=== PATIENT | female | born 1980 | race Caucasian/White ===

== ENCOUNTER 2017-10-10 18:21 | Emergency (ER) | payer MEDICAID ==
[~2017-10-10] VITALS: Ht 162.6 cm; Wt 130.8 kg
[~2017-10-10 18:21] MED LIST: CLIN-80 PO; IBUP-1985 PO; MONT10TA21 PO; PANT-47 PO; PHEN-824 PO
[2017-10-10 19:37] VITALS: BP 124/84
[2017-10-10] MEDS ORDERED: ketorolac trometh inj. 60 MG/2 ML VIAL IM ONE (19:50)
[2017-10-10] MEDS ORDERED: diphenhydrAMINE 50 mg/ml inj IM ONE (19:50)
== END 2017-10-10 20:35 | disposition home or self-care (01) ==
LOC: ER 18:21
DX: R51 Headache (principal); I10 Essential (primary) hypertension; J45.909 Unspecified asthma, uncomplicated; Z98.51 Tubal ligation status; Z79.899 Other long term (current) drug therapy; Z88.0 Allergy status to penicillin; Z88.2 Allergy status to sulfonamides; Z88.8 Allergy status to other drugs, medicaments and biological substances
CPT/HCPCS: 96372; 99284; J1200; J1885

== ENCOUNTER 2018-02-14 11:24 | Emergency (ER) | payer MEDICAID ==
[~2018-02-14] VITALS: Ht 162.6 cm; Wt 127.0 kg
[~2018-02-14 11:24] MED LIST changes: -CLIN-80 PO; +CLIN300C85 PO
[2018-02-14 11:27] VITALS: BP 116/76
[2018-02-14] MEDS ORDERED: OMEP20TA5 PO (12:08)
[2018-02-14] MEDS ORDERED: CYCL-1 PO (12:08)
== END 2018-02-14 12:25 | disposition home or self-care (01) ==
LOC: ER 11:24
DX: R10.13 Epigastric pain (principal); M62.830 Muscle spasm of back; M54.2 Cervicalgia; I10 Essential (primary) hypertension; G43.909 Migraine, unspecified, not intractable, without status migrainosus; J45.909 Unspecified asthma, uncomplicated; Z88.0 Allergy status to penicillin; Z88.2 Allergy status to sulfonamides; Z88.8 Allergy status to other drugs, medicaments and biological substances; Z79.899 Other long term (current) drug therapy
CPT/HCPCS: 99283

== ENCOUNTER 2018-02-27 10:08 | Emergency (ER) | payer MEDICAID ==
[~2018-02-27] VITALS: Ht 162.6 cm; Wt 129.8 kg
[~2018-02-27 10:08] MED LIST changes: +CYCL-1 PO; +OMEP20TA5 PO
[2018-02-27 10:16] VITALS: BP 134/92
[2018-02-27] MEDS ORDERED: DOXY100C43 PO (10:46)
[2018-02-27] MEDS ORDERED: ALBU8.5H8 IH (10:46)
== END 2018-02-27 11:00 | disposition home or self-care (01) ==
LOC: ER 10:08
DX: R06.00 Dyspnea, unspecified (principal); A49.02 Methicillin resistant Staphylococcus aureus infection, unspecified site; L08.9 Local infection of the skin and subcutaneous tissue, unspecified; G43.909 Migraine, unspecified, not intractable, without status migrainosus; I10 Essential (primary) hypertension; J45.909 Unspecified asthma, uncomplicated; Z98.51 Tubal ligation status; Z88.0 Allergy status to penicillin; Z88.2 Allergy status to sulfonamides; Z79.2 Long term (current) use of antibiotics; Z79.899 Other long term (current) drug therapy
CPT/HCPCS: 99283

== ENCOUNTER 2018-07-04 12:09 | Emergency (ER) | payer MEDICAID ==
[~2018-07-04] VITALS: Ht 157.5 cm; Wt 135.5 kg
[~2018-07-04 12:09] MED LIST changes: +ALBU8.5H8 IH
[2018-07-04 13:10] LABS: URINE HCG NEGATIVE (NEG)
[2018-07-04 13:19] LABS: CLARITY,URINE CLEAR (Clear); COLOR,URINE YELLOW (Yellow); GLUCOSE, URINE NEGATIVE (Neg); KETONES,URINE NEGATIVE (Neg); LEUKOCYTE ESTERASE ,URINE NEGATIVE (Neg); NITRITES, URINE NEGATIVE (Neg); OCCULT BLOOD,URINE NEGATIVE (Neg); PH,URINE 5.5 (4.8-8.0); PROTEIN,URINE NEGATIVE (Neg); UROBILINOGEN,URINE 0.2 E.U/dL (0.2-1.0)
[2018-07-04 13:22] LABS: UA COLLECTION TYPE CLN CATCH MIDSTREAM
[2018-07-04] MEDS ORDERED: NAPR-56 PO (13:32)
[2018-07-04 13:45] VITALS: BP 114/77
== END 2018-07-04 13:55 | disposition home or self-care (01) ==
LOC: ER 12:09
DX: M54.5 Low back pain (principal); I10 Essential (primary) hypertension; G43.909 Migraine, unspecified, not intractable, without status migrainosus; J45.909 Unspecified asthma, uncomplicated; Z98.51 Tubal ligation status; Z88.0 Allergy status to penicillin; Z88.2 Allergy status to sulfonamides; Z79.2 Long term (current) use of antibiotics; Z79.899 Other long term (current) drug therapy
CPT/HCPCS: 81003; 81025; 99283

== ENCOUNTER 2018-07-27 12:40 | Emergency (ER) | payer MEDICAID ==
[~2018-07-27] VITALS: Ht 157.5 cm; Wt 139.3 kg
[~2018-07-27 12:40] MED LIST changes: +NAPR-56 PO
[2018-07-27 13:13] VITALS: BP 134/83
[2018-07-27 14:09] LABS: CLARITY,URINE SLIGHTLY CLOUDY (Clear); COLOR,URINE STRAW (Yellow); GLUCOSE, URINE NEGATIVE (Neg); KETONES,URINE NEGATIVE (Neg); LEUKOCYTE ESTERASE ,URINE NEGATIVE (Neg); NITRITES, URINE NEGATIVE (Neg); OCCULT BLOOD,URINE NEGATIVE (Neg); PROTEIN,URINE NEGATIVE (Neg); URINE HCG NEGATIVE (NEG); UROBILINOGEN,URINE 0.2 E.U/dL (0.2-1.0)
[2018-07-27 14:16] LABS: MUCUS STRANDS FEW /LPF (Neg); SQUAMOUS EPITHELIAL CELL,UR MODERATE /LPF (FEW); UA COLLECTION TYPE CLN CATCH MIDSTREAM
[2018-07-27 14:17] LABS: BACTERIA,URINE FEW /HPF (Neg); RBC,URINE 0-2 /HPF (0-2); WBC,URINE 0-4 /HPF (0-4)
[2018-07-27] MEDS ORDERED: fluconazole 150mg tablet PO ONE (14:25)
== END 2018-07-27 14:43 | disposition home or self-care (01) ==
LOC: ER 12:40
DX: R30.0 Dysuria (principal); M54.5 Low back pain; I10 Essential (primary) hypertension; J45.909 Unspecified asthma, uncomplicated; G43.909 Migraine, unspecified, not intractable, without status migrainosus; Z98.51 Tubal ligation status; Z88.0 Allergy status to penicillin; Z88.2 Allergy status to sulfonamides; Z88.8 Allergy status to other drugs, medicaments and biological substances; Z79.899 Other long term (current) drug therapy
CPT/HCPCS: 81001; 81025; 99283

== ENCOUNTER 2018-10-20 15:05 | Emergency (ER) | payer MEDICAID ==
[~2018-10-20] VITALS: Ht 162.6 cm; Wt 140.0 kg
[~2018-10-20 15:05] MED LIST changes: +AZIT-63 PO; +CLIN-96 PO; -CLIN300C85 PO; -NAPR-56 PO
[2018-10-20 15:10] VITALS: BP 136/96
== END 2018-10-20 16:29 | disposition home or self-care (01) ==
LOC: ER 15:06
DX: J02.9 Acute pharyngitis, unspecified (principal); R05 Cough; I10 Essential (primary) hypertension; G43.909 Migraine, unspecified, not intractable, without status migrainosus; J45.909 Unspecified asthma, uncomplicated; Z98.51 Tubal ligation status; Z88.0 Allergy status to penicillin; Z88.2 Allergy status to sulfonamides; Z88.8 Allergy status to other drugs, medicaments and biological substances
CPT/HCPCS: 99281

== ENCOUNTER 2021-01-08 23:48 | Emergency (ER) | payer MEDICAID ==
[~2021-01-08] VITALS: Ht 162.6 cm; Wt 131.0 kg
[~2021-01-08 23:48] MED LIST changes: -AZIT-63 PO; -CLIN-96 PO; +CLIN-97 PO
[2021-01-08 23:53] VITALS: BP 101/70
[2021-01-09] MEDS ORDERED: ondansetron 4mg rapidly disintigrating tab PO ONE
--- NOTE | 2021-01-09 00:29 | NUR ---
Patient's MIL (Atiya): [phone] Sister (Christine): [phone]
[2021-01-09] MEDS ORDERED: ONDA4TAB6 PO (01:14)
== END 2021-01-09 01:31 | disposition home or self-care (01) ==
LOC: ER 23:48
DX: K29.00 Acute gastritis without bleeding (principal); Z20.822 Contact with and (suspected) exposure to COVID-19; R11.2 Nausea with vomiting, unspecified; R43.8 Other disturbances of smell and taste; R19.7 Diarrhea, unspecified; G43.909 Migraine, unspecified, not intractable, without status migrainosus; I10 Essential (primary) hypertension; J45.909 Unspecified asthma, uncomplicated; F31.9 Bipolar disorder, unspecified; F20.9 Schizophrenia, unspecified; Z86.69 Personal history of other diseases of the nervous system and sense organs; Z87.440 Personal history of urinary (tract) infections; Z90.49 Acquired absence of other specified parts of digestive tract; Z98.51 Tubal ligation status; Z88.0 Allergy status to penicillin; Z88.2 Allergy status to sulfonamides; Z88.8 Allergy status to other drugs, medicaments and biological substances; Z79.2 Long term (current) use of antibiotics; Z79.899 Other long term (current) drug therapy
CPT/HCPCS: 87635; 99283; C9803

== ENCOUNTER 2021-12-07 07:54 | Emergency (ER) | payer MEDICAID ==
[~2021-12-07] VITALS: Ht 157.5 cm; Wt 126.9 kg
[~2021-12-07 07:54] MED LIST changes: +ALBU8.5H17 IH; -ALBU8.5H8 IH; +OMEP20TA43 PO; -OMEP20TA5 PO; +ONDA4TAB6 PO
[2021-12-07 09:15] LABS: BASOPHILS % (AUTO) 0.6 % (0-1); EOSINOPHILS # (AUTO) 0.2 X10'3 (0-0.9); EOSINOPHILS % (AUTO) 3.7 % (0-6); HEMATOCRIT 35.8 % (35.0-45.0); HEMOGLOBIN 11.6 g/dl (12.0-16.0); LYMPHOCYTES # (AUTO) 1.6 X10'3 (1.1-4.8); LYMPHOCYTES % (AUTO) 25.9 % (21-51); MEAN CORPUSCULAR HEMOGLOBIN 27.5 PG (27.0-31.0); MEAN CORPUSCULAR HGB CONC 32.5 g/dL (33.0-36.5); MEAN CORPUSCULAR VOLUME 84.7 FL (78-98); MEAN PLATELET VOLUME 8.5 FL (7.4-10.4); MONOCYTES # (AUTO) 0.7 X10'3 (0-0.9); NEUTROPHILS # (AUTO) 3.5 X10'3 (1.8-7.7); NEUTROPHILS % (AUTO) 57.8 % (42-75); PLATELET COUNT 237 X10'3 (140-440); RED BLOOD COUNT 4.22 X10'6 (4.20-5.60); RED CELL DISTRIBUTION WIDTH 14.3 % (11.5-14.5)
[2021-12-07 09:18] LABS: ALANINE AMINOTRANSFERASE 52 U/L (12-78); ALBUMIN 3.3 G/DL (3.4-5.0); ALKALINE PHOSPHATASE 42 IU/L (46-116); ANION GAP 11 (8-16); ASPARTATE AMINO TRANSFERASE 33 U/L (10-37); BILIRUBIN,TOTAL 0.3 MG/DL (0.1-1.0); BLOOD UREA NITROGEN 18 MG/DL (7-18); CALCIUM 8.6 MG/DL (8.5-10.1); CHLORIDE 105 MMOL/L (99-107); CREATININE 1.29 MG/DL (0.40-0.90); GLUCOSE 100 MG/DL (70-104); POTASSIUM 3.9 MMOL/L (3.5-5.1); SODIUM 145 MMOL/L (135-145); TOTAL CARBON DIOXIDE 28.7 MMOL/L (24-32); TOTAL PROTEIN 6.5 G/DL (6.4-8.2); eGFR 45 ML/MIN
--- NOTE | 2021-12-07 10:12 | NUR ---
Report given to Kera you.
--- NOTE | 2021-12-07 10:48 | NUR ---
Deandre called back stating that the patient has been discharged and they are no longer taking her back to their facility. Pt's sister Christine Martinez [phone] has been called and states that she will come and pick her up.
[2021-12-07 11:20] VITALS: BP 148/92
[2021-12-07] MEDS ORDERED: OXYB5TAB16 PO (22:19)
[2021-12-07] MEDS ORDERED: GABA-530 PO (22:41)
[2021-12-07] MEDS ORDERED: PROP10TA10 PO (22:44)
[2021-12-07] MEDS ORDERED: PRAZ5CAP2 PO (22:48)
[2021-12-07] MEDS ORDERED: PALI6TAB6 PO (22:54)
[2021-12-07] MEDS ORDERED: ESCI-8 PO (22:54)
[2021-12-07] MEDS ORDERED: OMEP20CA16 PO (22:56)
[2021-12-07] MEDS ORDERED: FURO-150 PO (23:03)
== END 2021-12-07 11:31 | disposition home or self-care (01) ==
LOC: ER 07:54
DX: R60.0 Localized edema (principal); R06.02 Shortness of breath; G43.909 Migraine, unspecified, not intractable, without status migrainosus; I10 Essential (primary) hypertension; J45.909 Unspecified asthma, uncomplicated; F31.9 Bipolar disorder, unspecified; F20.9 Schizophrenia, unspecified; Z86.69 Personal history of other diseases of the nervous system and sense organs; Z87.440 Personal history of urinary (tract) infections; Z90.49 Acquired absence of other specified parts of digestive tract; Z98.51 Tubal ligation status; Z88.0 Allergy status to penicillin; Z88.2 Allergy status to sulfonamides; Z88.8 Allergy status to other drugs, medicaments and biological substances; Z79.2 Long term (current) use of antibiotics; Z79.899 Other long term (current) drug therapy
CPT/HCPCS: 36415; 80053; 85025; 99284

== ENCOUNTER 2021-12-07 20:13 | Emergency (ER) | payer MEDICAID ==
[~2021-12-07] VITALS: Ht 157.5 cm; Wt 172.7 kg
--- NOTE | 2021-12-07 22:01 | NUR ---
PT UP AND DOWN REPEATEDLY WITH LIMITED FOLLOWING DIRECTIONS
[2021-12-07] MEDS ORDERED: OXYB5TAB16 PO (22:19)
[2021-12-07] MEDS ORDERED: GABA-530 PO (22:41)
[2021-12-07] MEDS ORDERED: PROP10TA10 PO (22:44)
[2021-12-07] MEDS ORDERED: PRAZ5CAP2 PO (22:48)
--- NOTE | 2021-12-07 22:51 | NUR ---
PT CONTINUES TO GET UP OUT OF BED OVER AND OVER AND REFUSING TO FOLLOW COMMANDS. PT RETURNED TO BED EACH TIME WITH RESISTANCE
[2021-12-07] MEDS ORDERED: PALI6TAB6 PO (22:54)
[2021-12-07] MEDS ORDERED: ESCI-8 PO (22:54)
[2021-12-07] MEDS ORDERED: OMEP20CA16 PO (22:56)
[2021-12-07] MEDS ORDERED: FURO-150 PO (23:03)
--- NOTE | 2021-12-07 23:50 | NUR ---
PT REPEATEDLY UP OUT OF ROOM WITH NO CLOTHES ON OR JUST HER SHIRT. PT REPEATEDLY ATTEMPTING TO USE BEDSIDE COMMODE. PT CONTINUES TO CRY LOUDLY AND BE DISRUPTIVE. PT ATTEMPTING TO GRAB ITEMS IN ROOM OVER AND OVER WHILE BEING DIFFICULT TO REDIRECT. PT ATTEMPTING TO GO INTO OTHER PT'S ROOMS AND BEING DIFFICULT TO REDIRECT OUT. PT USING HER OWN FORCE TO DO THE OPPOSITE OF WHAT STAFF IS SUGGESTING PHYSICALLY. PT CONTINUALLY REDIRECTED BACK TO ROOM/BED SAFELY
[2021-12-08 00:09] LABS: BASOPHILS % (AUTO) 0.7 % (0-1); EOSINOPHILS # (AUTO) 0.2 X10'3 (0-0.9); EOSINOPHILS % (AUTO) 3.5 % (0-6); HEMATOCRIT 35.2 % (35.0-45.0); HEMOGLOBIN 11.7 g/dl (12.0-16.0); LYMPHOCYTES # (AUTO) 1.9 X10'3 (1.1-4.8); LYMPHOCYTES % (AUTO) 29.4 % (21-51); MEAN CORPUSCULAR HEMOGLOBIN 27.6 PG (27.0-31.0); MEAN CORPUSCULAR HGB CONC 33.1 g/dL (33.0-36.5); MEAN CORPUSCULAR VOLUME 83.3 FL (78-98); MEAN PLATELET VOLUME 8.5 FL (7.4-10.4); MONOCYTES # (AUTO) 0.8 X10'3 (0-0.9); MONOCYTES % (AUTO) 11.7 % (2-12); NEUTROPHILS # (AUTO) 3.5 X10'3 (1.8-7.7); NEUTROPHILS % (AUTO) 54.7 % (42-75); PLATELET COUNT 243 X10'3 (140-440); RED BLOOD COUNT 4.23 X10'6 (4.20-5.60); RED CELL DISTRIBUTION WIDTH 14.2 % (11.5-14.5); WHITE BLOOD COUNT 6.4 X10'3 (4.5-11.0)
[2021-12-08 00:29] LABS: ALANINE AMINOTRANSFERASE 45 U/L (12-78); ALBUMIN 3.5 G/DL (3.4-5.0); ALKALINE PHOSPHATASE 47 IU/L (46-116); ANION GAP 8 (8-16); ASPARTATE AMINO TRANSFERASE 29 U/L (10-37); BILIRUBIN,TOTAL 0.3 MG/DL (0.1-1.0); BLOOD UREA NITROGEN 18 MG/DL (7-18); BUN/CREATININE RATIO 13.8 (6.6-38.0); CALCIUM 8.7 MG/DL (8.5-10.1); CHLORIDE 102 MMOL/L (99-107); ETHANOL < 0.010 GM/DL (0.0-0.010); GLUCOSE 108 MG/DL (70-104); POTASSIUM 3.9 MMOL/L (3.5-5.1); SODIUM 140 MMOL/L (135-145); TOTAL PROTEIN 6.9 G/DL (6.4-8.2); eGFR 45 ML/MIN
[2021-12-08] MEDS ORDERED: LORazepam 1 MG tablet PO ONE (01:10)
--- NOTE | 2021-12-08 01:15 | NUR ---
Pt has repeatedly taken her gown off and wanders her ER room and sometimes the ER hallway naked. Pt has been assisted back into her gown and directed to stay dressed. Pt is crying loudly and continually, only stopping when confronted with inappropriate behavior.
[2021-12-08] MEDS ORDERED: haloperidol lactate 5mg/ml inj IM ONE (02:50)
[2021-12-08] MEDS: gabapentin 300mg capsule PO PRN ×2 (02:55→19:56)
--- NOTE | 2021-12-08 03:10 | NUR ---
PT HAS CONTINUED TO DO ALL ABOVE BEHAVIOR. PT NOW FOUND TO BE ON HER PERIOD. PADS AND UNDERWEAR PLACED ON PT AND WILL CONTINUE TO REASSESS
[2021-12-08] MEDS ORDERED: LORazepam 2 mg/ml vial IM ONE (04:35)
--- NOTE | 2021-12-08 04:45 | NUR ---
AFTER BEING MEDICATED WITH 10MG HALDOL AND 2MG ATIVAN, PT CONTINUES TO WANDER THE UNIT, UNSAFELY GET OUT OF BED, NOT FOLLOW COMMANDS, CRY LOUDLY AND PERSISTENTLY GET NAKED BEFORE WANDERING UNIT. SPOKE TO DR ROSAS AND HE IS TO ORDER MORE ATIVAN AND SOFT RESTRAINTS
--- NOTE | 2021-12-08 06:47 | NUR ---
PT UP TO BATHROOM AND RETURNED. DID NOT PROVIDE URINE SAMPLE. THREW CUP IN TRASH. PT FOLLOWING INSTRUCTIONS AND RESTRAINTS REMOVED. PT AGREES TO FOLLOW INSTRUCTIONS AT THIS TIME.
[2021-12-08] MEDS: oxybutynin 5mg tablet PO SCH ×2 (08:17→20:10)
[2021-12-08] MEDS: PALIPERIDONE 3 MG TAB.ER.24 PO SCH (08:17)
[2021-12-08] MEDS: propranolol 10mg tablet PO SCH ×3 (08:17→20:48)
[2021-12-08] MEDS: pantoprazole 40mg Tablet.DR PO SCH (08:17)
[2021-12-08] MEDS: ESCITALOPRAM OXALATE 5 MG TABLET PO SCH (08:18)
[2021-12-08] MEDS: furosemide 20MG tablet PO SCH ×2 (08:20→19:56)
--- NOTE | 2021-12-08 08:22 | NUR ---
PT SISTER AT BEDSIDE. TOOK MORNING MEDICATIONS WITHOUT ISSUE. PT NOW LAYING IN BED
--- NOTE | 2021-12-08 10:00 | NUR ---
Pt was brought over to bed #23 via wheelchair from main ED. 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 Pt urinated on the floor before coming over to OF. Pt unable to leave sample at this time.
--- NOTE | 2021-12-08 10:54 | NUR ---
Pt sleeping comfortably, respirations even and unlabored.
--- NOTE | 2021-12-08 11:15 | NUR ---
Pt up pacing around her bed attempted to go into next bed area, pt required several attempts at redirection from staff. Pt continues to present disorgainzed, crying and whining. Random statements "I don't want to have sex anymore." "I am tired of all of this."
--- NOTE | 2021-12-08 11:30 | NUR ---
Pt up to bedside commode, states "it hurts when I pee." Obtained order
--- NOTE | 2021-12-08 12:04 | NUR ---
Pt has has multiple urine incontinent episodes, due to needing a urine sample for placement a straight cath was administered wit result. Urine sent to lab.
--- NOTE | 2021-12-08 12:10 | NUR ---
Pt is resting quietly in her bed, respirations even and unlabored.
[2021-12-08 12:14] LABS: URINE HCG NEGATIVE (NEG)
[2021-12-08 12:17] LABS: URINE AMPHETAMINE SCREEN NEGATIVE (Neg); URINE BARBITUATE SCREEN NEGATIVE (Neg); URINE BENZODIAZEPINES SCREEN NEGATIVE (Neg); URINE CANNABINOID SCREEN NEGATIVE (Neg); URINE COCAINE SCREEN NEGATIVE (Neg); URINE METHADONE SCREEN NEGATIVE (Neg); URINE OPIATE SCREEN NEGATIVE (Neg); URINE PHENCYCLIDINE SCREEN NEGATIVE (Neg)
--- NOTE | 2021-12-08 12:59 | NUR ---
Pt ate 100% of her lunch. She is now sleeping restfully, respirations even and unlabored.
--- NOTE | 2021-12-08 13:35 | NUR ---
Pt woke saturated bed and clothing. Linens and bedding changed.
[2021-12-08 13:48] LABS: CLARITY,URINE CLEAR (Clear); GLUCOSE, URINE NEGATIVE (Neg); KETONES,URINE NEGATIVE (Neg); LEUKOCYTE ESTERASE ,URINE NEGATIVE (Neg); NITRITES, URINE NEGATIVE (Neg); OCCULT BLOOD,URINE SMALL (Neg); PH,URINE 5.5 (4.8-8.0); PROTEIN,URINE NEGATIVE (Neg); UROBILINOGEN,URINE 0.2 E.U/dL (0.2-1.0)
[2021-12-08 13:52] LABS: COLOR,URINE STRAW (Yellow); UA COLLECTION TYPE STRAIGHT CATH
[2021-12-08 13:58] LABS: BACTERIA,URINE NONE SEEN /HPF (Neg); MUCUS STRANDS NONE SEEN /LPF (Neg); RBC,URINE 0-2 /HPF (0-2); SQUAMOUS EPITHELIAL CELL,UR MANY /LPF (FEW); WBC,URINE NONE SEEN /HPF (0-4)
--- NOTE | 2021-12-08 15:03 | NUR ---
Pt resting quietly, respirations even and unlabored.
--- NOTE | 2021-12-08 16:08 | NUR ---
Pt is restless, up and down to the bedside commode, talking non sensically.
--- NOTE | 2021-12-08 17:36 | NUR ---
Pt resting comfortably, respirations even and unlabored.
--- NOTE | 2021-12-08 18:27 | NUR ---
Pt sitting up in bed, eating dinner. No acute distress.
--- NOTE | 2021-12-08 19:28 | NUR ---
Pt laying in the right lateral position. Eyes closed, respirations are even and unlabored.
--- NOTE | 2021-12-08 19:50 | NUR ---
Pt awoke with linen and gown saturated. Full linen change and new gown provided. Pt gave self bed bath using cleaning wipes. Pt now laying supine in bed, requesting for "something to sleep."
--- NOTE | 2021-12-08 20:30 | NUR ---
Pt laying on right side, eyes are closed, respirations are even and unlabored.
[2021-12-08] MEDS: prazosin 5mg capsule PO SCH (20:49)
--- NOTE | 2021-12-08 21:28 | NUR ---
Pt ambulated to the restroom. States " I just want to go home" and occassionally yelling out from her room. Pt compliant with all pm medications. Prazosin and propanolol held due to blood pressure of 100/56.
--- NOTE | 2021-12-08 22:42 | NUR ---
Pt laying on right side, respirations are nonlabored, eyes are closed. Pt is in no apparent distress.
--- NOTE | 2021-12-09 00:20 | NUR ---
Pt laying supine, head of bed elevated. Pt's eyes are closed, respirations are even and unlabored.
--- NOTE | 2021-12-09 02:01 | NUR ---
Pt laying supine, head of bed elevated. Eyes are closed, respirations are even and unlabored. Pt is in no apprent distress.
--- NOTE | 2021-12-09 04:12 | NUR ---
Pt appears to be sleeping, in no acute distress. Pt laying supine, eyes closed, respirations are even and unlabored.
--- NOTE | 2021-12-09 04:40 | NUR ---
Pt awoke from sleep, linens are saturated with urine. Complete linen change completed. Pt cleaned self up with bath wipes. Pt stated "I just can't get comfortable" Attempted to adjust bed to her comfort.
--- NOTE | 2021-12-09 07:13 | NUR ---
PT RESTING LAYING ON R SIDE, EYES CLOSED, EFFORTLESS RESPIRATIONS OBSERVED.
[2021-12-09] MEDS: oxybutynin 5mg tablet PO SCH ×2 (09:03→20:29)
[2021-12-09] MEDS: PALIPERIDONE 3 MG TAB.ER.24 PO SCH (09:03)
[2021-12-09] MEDS: pantoprazole 40mg Tablet.DR PO SCH (09:04)
[2021-12-09] MEDS: furosemide 20MG tablet PO SCH ×2 (09:04→19:27)
[2021-12-09] MEDS: ESCITALOPRAM OXALATE 5 MG TABLET PO SCH (09:04)
[2021-12-09] MEDS: propranolol 10mg tablet PO SCH ×3 (09:04→19:27)
--- NOTE | 2021-12-09 09:15 | NUR ---
PT AMBULATED BACK TO ROOM 25. REPORT WAS GIVEN TO BEKA GURROLA. PT REMAINS CALM AND COOPERATIVE.
--- NOTE | 2021-12-09 11:00 | NUR ---
Pt currently asleep with no signs of distress.
--- NOTE | 2021-12-09 11:45 | NUR ---
Pt became irritable, talking jibberish from her bed, yelling at times. Provider notified and 5MG haldol given. Pt incontinent of urine, linen and gown changed, fresh chux provided.
--- NOTE | 2021-12-09 13:00 | NUR ---
Pt up to eat lunch. No complaints.
--- NOTE | 2021-12-09 15:00 | NUR ---
Pt's sister visited briefly. Pt was glad to see her. Pt fell back to sleep.
--- NOTE | 2021-12-09 17:00 | NUR ---
Pt restless and talking and crying to herself. What she verbalizes is basically psychotic giberish. Pt up multiple times to the bathroom
[2021-12-09] MEDS: LORazepam 1 MG tablet PO PRN ×2 (17:17→23:05)
[2021-12-09] MEDS: gabapentin 300mg capsule PO PRN (18:34)
[2021-12-09] MEDS ORDERED: OLANZapine 2.5MG tablet PO ONE (19:20)
[2021-12-09] MEDS: prazosin 5mg capsule PO SCH (19:27)
--- NOTE | 2021-12-09 19:53 | NUR ---
Pt voiced AH/AH stating that she hears and sees things "like seeing people like you who remind me of my mom." Pt responding to IS, provider notified and ordered 10MG of Zyprexa. Pt currently lying down in bed resting.
--- NOTE | 2021-12-09 20:40 | NUR ---
Pt incontinent of urine, pt crying stating she needs her mom. Pt cleaned up and new sheets and chux provided.
--- NOTE | 2021-12-09 23:07 | NUR ---
Pt awake responding to IS. 1MG ativan given.
[2021-12-09] MEDS ORDERED: haloperidol 5mg tablet PO ONE (23:40)
--- NOTE | 2021-12-10 03:15 | NUR ---
pt appears to be sleeping
--- NOTE | 2021-12-10 03:42 | NUR ---
Pt incontinent of urine, bedding changed and new gown given. Pt is respinding to IS.
--- NOTE | 2021-12-10 06:30 | NUR ---
Patient sleeping (snoring) and laying on left side. No distress observed. Continue to monitor.
--- NOTE | 2021-12-10 08:11 | NUR ---
RN placed patient's breakfast tray at bedside. No distress observed. Continue to monitor.
--- NOTE | 2021-12-10 08:15 | NUR ---
Patient continues to sleep. Continue to monitor.
[2021-12-10] MEDS: PALIPERIDONE 3 MG TAB.ER.24 PO SCH (08:58)
[2021-12-10] MEDS: pantoprazole 40mg Tablet.DR PO SCH (08:58)
[2021-12-10] MEDS: propranolol 10mg tablet PO SCH ×3 (08:58→19:57)
[2021-12-10] MEDS: furosemide 20MG tablet PO SCH ×2 (08:58→19:57)
[2021-12-10] MEDS: oxybutynin 5mg tablet PO SCH ×2 (08:58→19:57)
[2021-12-10] MEDS: ESCITALOPRAM OXALATE 5 MG TABLET PO SCH (08:58)
--- NOTE | 2021-12-10 09:40 | NUR ---
Patient awake and sitting on the edge of her bed eating. No distress observed at this time. Continue to monitor.
--- NOTE | 2021-12-10 11:32 | NUR ---
Patient up and urinated in bed. Tech cleaning patient's bed. Patient in no distress. Continue to monitor.
--- NOTE | 2021-12-10 11:45 | NUR ---
Patient walking to the BR, did not make it and pooped on the floor. Patient finished in the BR. No distress observed. Continue to monitor.
--- NOTE | 2021-12-10 12:13 | NUR ---
Patient sitting in chair and eating her lunch. Patient did complain of seeing lights flash. RN will speak to the Doc to see what we can order to assist patient. Continue to monitor.
[2021-12-10] MEDS ORDERED: haloperidol 5mg tablet PO ONE (12:20)
--- NOTE | 2021-12-10 12:22 | NUR ---
Patient eating lunch. No distress observed. Continue to monitor.
--- NOTE | 2021-12-10 14:15 | NUR ---
Patient sleeping (snoring) on her left side. No distress observed. Continue to monitor.
--- NOTE | 2021-12-10 16:10 | NUR ---
Patient given a warm blanket. No distress observed. Continue to monitor.
--- NOTE | 2021-12-10 19:38 | NUR ---
One to one with the patient who has a pensive affect and is endorsing high anxiety and explained, "I don't know what they are going to do with me" She reports auditory hallucinations, "They ask me who did all this damage to me" She also reports command hallucinations tellling her to kill herself but stated she does want to commit suicide and that she wants to live. She denies visual hallucinations.
[2021-12-10] MEDS: prazosin 5mg capsule PO SCH (19:57)
[2021-12-10] MEDS: gabapentin 300mg capsule PO PRN (19:57)
[2021-12-10] MEDS: LORazepam 1 MG tablet PO PRN (19:57)
--- NOTE | 2021-12-10 20:28 | NUR ---
The patient appears to be sleeping
[2021-12-10] MEDS ORDERED: haloperidol 5mg tablet PO SCH (21:00)
--- NOTE | 2021-12-10 22:50 | NUR ---
The patient appears to be sleeping
--- NOTE | 2021-12-11 01:22 | NUR ---
The patient appears to be sleeping
--- NOTE | 2021-12-11 04:07 | NUR ---
The patient appears to be sleeping
[2021-12-11 05:11] VITALS: BP 105/69
--- NOTE | 2021-12-11 05:17 | NUR ---
The patient appears to be sleeping and can be heard snoring
--- NOTE | 2021-12-11 06:44 | NUR ---
Patient sleeping on left side with her head at the foot of the bed. Patient can be heard snoring. No distress observed. Continue to monitor.
--- NOTE | 2021-12-11 08:16 | NUR ---
RN took patient's tray over to her. Patient got up and patient was soaked in urine. Patient went to change in the BR and patient's bed was cleaned. No distress observed. Continue to monitor.
[2021-12-11] MEDS: propranolol 10mg tablet PO SCH ×2 (08:26→13:38)
[2021-12-11] MEDS: pantoprazole 40mg Tablet.DR PO SCH (08:26)
[2021-12-11] MEDS: furosemide 20MG tablet PO SCH (08:26)
[2021-12-11] MEDS: PALIPERIDONE 3 MG TAB.ER.24 PO SCH (08:26)
[2021-12-11] MEDS: oxybutynin 5mg tablet PO SCH (08:29)
[2021-12-11] MEDS: ESCITALOPRAM OXALATE 5 MG TABLET PO SCH (08:29)
--- NOTE | 2021-12-11 09:25 | NUR ---
Patient's sister is visiting with her. No distress observed. Continue to monitor.
--- NOTE | 2021-12-11 09:55 | NUR ---
Patient got out of bed to use and was dry. This was the first time in 2 days she has not been wet. Continue to monitor.
--- NOTE | 2021-12-11 11:01 | NUR ---
Patient incontinent of urine again. Tech changing patient. No distress observed. Continue to monitor.
--- NOTE | 2021-12-11 12:09 | NUR ---
Patient eating lunch. No distress observed. Continue to monitor.
--- NOTE | 2021-12-11 14:03 | NUR ---
Patient sitting up in chair. No distress observed. Continue to monitor.
--- NOTE | 2021-12-11 16:09 | NUR ---
Patient is sitting in her chair in front of her bed awaiting her sister to pick her up. No distress observed. Continue to monitor.
== END 2021-12-11 16:10 | disposition home or self-care (01) ==
LOC: ER 20:15
DX: M79.605 Pain in left leg (principal); Z20.822 Contact with and (suspected) exposure to COVID-19; M79.604 Pain in right leg; G43.909 Migraine, unspecified, not intractable, without status migrainosus; I10 Essential (primary) hypertension; J45.909 Unspecified asthma, uncomplicated; F31.9 Bipolar disorder, unspecified; F20.9 Schizophrenia, unspecified; Z86.69 Personal history of other diseases of the nervous system and sense organs; Z87.440 Personal history of urinary (tract) infections; Z90.49 Acquired absence of other specified parts of digestive tract; Z98.51 Tubal ligation status; Z88.0 Allergy status to penicillin; Z88.2 Allergy status to sulfonamides; Z88.8 Allergy status to other drugs, medicaments and biological substances; Z79.899 Other long term (current) drug therapy
CPT/HCPCS: 36415; 80053; 80305; 80320; 81001; 81025; 84443; 85025; 87635; 96372; 99285; C9803; J1630; J2060

== ENCOUNTER 2022-03-18 15:40 | Emergency (ER) | payer MEDICAID ==
[~2022-03-18] VITALS: Ht 157.5 cm; Wt 172.0 kg
[~2022-03-18 15:40] MED LIST changes: -ALBU8.5H17 IH; -CLIN-97 PO; -CYCL-1 PO; +ESCI-8 PO; +FURO-150 PO; +GABA-530 PO; -IBUP-1985 PO; -MONT10TA21 PO; +OMEP20CA16 PO; -OMEP20TA43 PO; -ONDA4TAB6 PO; +OXYB5TAB16 PO; +PALI6TAB6 PO; -PANT-47 PO; -PHEN-824 PO; +PRAZ5CAP2 PO; +PROP10TA10 PO
[2022-03-18 15:48] VITALS: BP 146/100
== END 2022-03-18 19:50 | disposition left against medical advice (07) ==
LOC: ER 15:41
DX: R25.1 Tremor, unspecified (principal); Z53.21 Procedure and treatment not carried out due to patient leaving prior to being seen by health care provider

== ENCOUNTER 2024-02-09 16:23 | Emergency (ER) | payer MEDICAID ==
[~2024-02-09] VITALS: Ht 162.6 cm; Wt 143.4 kg
[~2024-02-09 16:23] MED LIST changes: -OXYB5TAB16 PO; +OXYB5TAB21 PO
[2024-02-09 17:25] LABS: BASOPHILS % (AUTO) 0.6 % (0-1); EOSINOPHILS # (AUTO) 0.3 X10'3 (0-0.9); EOSINOPHILS % (AUTO) 4.6 % (0-6); HEMATOCRIT 42.3 % (35.0-45.0); HEMOGLOBIN 14.3 g/dl (12.0-16.0); LYMPHOCYTES # (AUTO) 2.3 X10'3 (1.1-4.8); LYMPHOCYTES % (AUTO) 34.9 % (21-51); MEAN CORPUSCULAR HEMOGLOBIN 29.4 PG (27.0-31.0); MEAN CORPUSCULAR HGB CONC 33.9 g/dL (33.0-36.5); MEAN CORPUSCULAR VOLUME 86.9 FL (78-98); MONOCYTES # (AUTO) 0.7 X10'3 (0-0.9); MONOCYTES % (AUTO) 11.1 % (2-12); NEUTROPHILS # (AUTO) 3.3 X10'3 (1.8-7.7); NEUTROPHILS % (AUTO) 48.8 % (42-75); PLATELET COUNT 135 X10'3 (140-440); RED BLOOD COUNT 4.87 X10'6 (4.20-5.60); RED CELL DISTRIBUTION WIDTH 15.9 % (11.5-14.5); WHITE BLOOD COUNT 6.7 X10'3 (4.5-11.0)
[2024-02-09 17:40] LABS: ALANINE AMINOTRANSFERASE 19 U/L (12-78); ALBUMIN 3.1 G/DL (3.4-5.0); ALBUMIN/GLOBULIN RATIO 0.7 (1.1-1.5); ALKALINE PHOSPHATASE 52 IU/L (46-116); AMYLASE 44 U/L (25-115); ANION GAP 7 (8-16); ASPARTATE AMINO TRANSFERASE 15 U/L (10-37); BILIRUBIN,TOTAL 0.3 MG/DL (0.1-1.0); BLOOD UREA NITROGEN 19 MG/DL (7-18); BUN/CREATININE RATIO 17.9 (10.0-20.0); CALCIUM 8.5 MG/DL (8.5-10.1); CHLORIDE 99 MMOL/L (99-107); CREATININE 1.06 MG/DL (0.40-0.90); GLUCOSE 101 MG/DL (70-104); LIPASE 27 U/L (16-77); SODIUM 133 MMOL/L (135-145); TOTAL CARBON DIOXIDE 27.2 MMOL/L (24-32); TOTAL PROTEIN 7.3 G/DL (6.4-8.2); eCRCL 58 ML/MIN; eGFR 56 ML/MIN
[2024-02-09 18:55] VITALS: TEMP 98.2
[2024-02-09] MEDS ORDERED: ketorolac trometh. 30mg/ml inj. IV ONE (19:10)
[2024-02-09] MEDS: ondansetron 4mg rapidly disintigrating tab PO ONE (19:25)
[2024-02-09 19:48] LABS: BILIRUBIN,URINE NEGATIVE (Neg); CLARITY,URINE CLEAR (Clear); COLOR,URINE YELLOW (Yellow); GLUCOSE, URINE NEGATIVE (Neg); KETONES,URINE NEGATIVE (Neg); LEUKOCYTE ESTERASE ,URINE NEGATIVE (Neg); NITRITES, URINE NEGATIVE (Neg); OCCULT BLOOD,URINE NEGATIVE (Neg); PH,URINE 5.5 (4.8-8.0); PROTEIN,URINE NEGATIVE (Neg); URINE HCG NEGATIVE (NEG); UROBILINOGEN,URINE 0.2 E.U/dL (0.2-1.0)
[2024-02-09 19:50] LABS: UA COLLECTION TYPE CLN CATCH MIDSTREAM
[2024-02-09] MEDS: ketorolac tromethamine 15mg/ml inj. IV ONE (19:56)
[2024-02-09] MEDS: ketorolac tromethamine 15mg/ml inj. IM ONE (20:17)
[2024-02-09] MEDS ORDERED: METH-798 PO (20:54)
[2024-02-09] MEDS ORDERED: IBUP-1985 PO (20:54)
[2024-02-09 21:02] VITALS: BP 160/89; PULSE 65; RESP 18; O2SAT 98
== END 2024-02-09 21:35 | disposition home or self-care (01) ==
LOC: ER 16:24
DX: M54.9 Dorsalgia, unspecified (principal); R10.84 Generalized abdominal pain; G43.909 Migraine, unspecified, not intractable, without status migrainosus; I10 Essential (primary) hypertension; J45.909 Unspecified asthma, uncomplicated; F31.9 Bipolar disorder, unspecified; F20.9 Schizophrenia, unspecified; Z90.49 Acquired absence of other specified parts of digestive tract; Z98.51 Tubal ligation status; Z88.0 Allergy status to penicillin; Z88.2 Allergy status to sulfonamides; Z79.899 Other long term (current) drug therapy
CPT/HCPCS: 36415; 74176; 80053; 81003; 81025; 82150; 83690; 85025; 96372; 99285; J1885

== ENCOUNTER 2024-02-17 11:01 | Emergency (ER) | payer MEDICAID ==
[~2024-02-17] VITALS: Ht 162.6 cm; Wt 134.0 kg
[~2024-02-17 11:01] MED LIST changes: +IBUP-1985 PO; +METH-798 PO
[2024-02-17] MEDS ORDERED: GUAI120015 PO (11:40)
[2024-02-17] MEDS ORDERED: ALBU18HF2 INH (11:40)
[2024-02-17] MEDS ORDERED: SODI45SP5 BOTHNARES (11:40)
[2024-02-17 11:56] VITALS: BP 137/91; PULSE 92; RESP 18; TEMP 98.6; O2SAT 96
== END 2024-02-17 12:03 | disposition home or self-care (01) ==
LOC: ER 11:02
DX: J22 Unspecified acute lower respiratory infection (principal); G43.909 Migraine, unspecified, not intractable, without status migrainosus; I10 Essential (primary) hypertension; J45.909 Unspecified asthma, uncomplicated; F31.9 Bipolar disorder, unspecified; Z88.0 Allergy status to penicillin; Z88.2 Allergy status to sulfonamides; Z79.899 Other long term (current) drug therapy; Z79.1 Long term (current) use of non-steroidal anti-inflammatories (NSAID); Z90.49 Acquired absence of other specified parts of digestive tract; Z98.51 Tubal ligation status
CPT/HCPCS: 99283

== ENCOUNTER 2024-02-28 08:31 | Emergency (ER) | payer MEDICAID ==
[~2024-02-28] VITALS: Ht 162.6 cm; Wt 143.0 kg
[~2024-02-28 08:31] MED LIST changes: +ALBU18HF2 INH; +GUAI120015 PO; +SODI45SP5 BOTHNARES
[2024-02-28] MEDS: HYDROcodone/acetaminophen 10/325mg tab PO ONE (09:24)
[2024-02-28] MEDS: ondansetron 4mg rapidly disintigrating tab PO ONE (09:24)
[2024-02-28] MEDS: ketorolac trometh. 30mg/ml inj. IM ONE (10:30)
[2024-02-28] MEDS ORDERED: ONDA-243 PO (11:24)
[2024-02-28] MEDS ORDERED: HYDR-3965 PO (11:24)
[2024-02-28 11:33] VITALS: BP 128/92; PULSE 71; RESP 17; TEMP 98.6; O2SAT 94
== END 2024-02-28 11:35 | disposition home or self-care (01) ==
LOC: ER 08:32
DX: G44.209 Tension-type headache, unspecified, not intractable (principal); G43.909 Migraine, unspecified, not intractable, without status migrainosus; I10 Essential (primary) hypertension; J45.909 Unspecified asthma, uncomplicated; F31.9 Bipolar disorder, unspecified; F20.9 Schizophrenia, unspecified; Z88.0 Allergy status to penicillin; Z88.2 Allergy status to sulfonamides; Z79.899 Other long term (current) drug therapy; Z79.1 Long term (current) use of non-steroidal anti-inflammatories (NSAID); Z90.49 Acquired absence of other specified parts of digestive tract; Z98.51 Tubal ligation status
CPT/HCPCS: 96372; 99285; J1885

== ENCOUNTER 2024-03-01 08:51 | Outpatient (CLI) | payer MEDICAID ==
[~2024-03-01 08:51] MED LIST changes: +HYDR-3965 PO; +ONDA-243 PO
== END 2024-03-01 23:59 | disposition home or self-care (01) ==
LOC: RAD 08:51
PROVIDERS: ATTEND Nurse Practitioner Psychiatric/Mental Health
DX: F25.9 Schizoaffective disorder, unspecified (principal); Z79.899 Other long term (current) drug therapy
CPT/HCPCS: 93005

== ENCOUNTER 2024-03-20 10:03 | Emergency (ER) | payer MEDICAID ==
[~2024-03-20] VITALS: Ht 162.6 cm; Wt 141.4 kg
[~2024-03-20 10:03] MED LIST changes: -HYDR-3965 PO
[2024-03-20] MEDS: diphenhydrAMINE 25mg capsule PO ONE (11:13)
[2024-03-20] MEDS: ketorolac trometh 15mg/ml vial 15 MG/ML ML IM ONE (11:14)
[2024-03-20] MEDS: ondansetron 4mg rapidly disintigrating tab PO ONE (11:14)
[2024-03-20 11:42] VITALS: BP 153/84; PULSE 78; RESP 16; TEMP 97.6; O2SAT 97
== END 2024-03-20 11:40 | disposition home or self-care (01) ==
LOC: ER 10:04
DX: M25.552 Pain in left hip (principal); G43.909 Migraine, unspecified, not intractable, without status migrainosus; I10 Essential (primary) hypertension; J45.909 Unspecified asthma, uncomplicated; F31.9 Bipolar disorder, unspecified; Z88.0 Allergy status to penicillin; Z88.2 Allergy status to sulfonamides; Z79.899 Other long term (current) drug therapy; Z79.1 Long term (current) use of non-steroidal anti-inflammatories (NSAID); Z98.51 Tubal ligation status; Z90.49 Acquired absence of other specified parts of digestive tract
CPT/HCPCS: 73502; 96372; 99284; J1885; Q0163

== ENCOUNTER 2024-05-03 08:19 | Emergency (ER) | payer MEDICAID ==
[~2024-05-03] VITALS: Ht 162.6 cm; Wt 144.8 kg
[2024-05-03 08:41] VITALS: BP 148/104; PULSE 79; O2SAT 97
[2024-05-03 09:37] LABS: HCG SERUM QL NEGATIVE
[2024-05-03] MEDS: dexamethasone sod phosphate 10mg/ml inj PO STA (09:49)
[2024-05-03 09:50] VITALS: RESP 16
[2024-05-03] MEDS: ketorolac trometh 30MG/ML vial 30 MG/ML VIAL IM ONE (09:50)
[2024-05-03] MEDS: diphenhydrAMINE 50 mg/ml inj IM ONE (09:50)
[2024-05-03] MEDS: metoclopramide 5 mg/ml inj IM ONE (09:51)
[2024-05-03 10:00] VITALS: TEMP 97
== END 2024-05-03 09:59 | disposition home or self-care (01) ==
LOC: ER 08:20
DX: G43.909 Migraine, unspecified, not intractable, without status migrainosus (principal); I10 Essential (primary) hypertension; J45.909 Unspecified asthma, uncomplicated; F20.9 Schizophrenia, unspecified; F31.9 Bipolar disorder, unspecified; Z88.0 Allergy status to penicillin; Z88.2 Allergy status to sulfonamides; Z79.899 Other long term (current) drug therapy; Z79.1 Long term (current) use of non-steroidal anti-inflammatories (NSAID); Z90.49 Acquired absence of other specified parts of digestive tract; Z98.51 Tubal ligation status; Z87.440 Personal history of urinary (tract) infections
CPT/HCPCS: 36415; 70450; 84703; 96372; 99285; J1100; J1200; J1885; J2765

== ENCOUNTER 2024-06-05 14:24 | Emergency (ER) | payer MEDICAID ==
[~2024-06-05] VITALS: Ht 162.6 cm; Wt 147.3 kg
[2024-06-05 14:31] VITALS: TEMP 98.2
[2024-06-05 15:21] LABS: BASOPHILS % (AUTO) 0.4 % (0-1); EOSINOPHILS # (AUTO) 0.3 X10'3 (0-0.9); EOSINOPHILS % (AUTO) 3.4 % (0-6); HEMATOCRIT 44.1 % (35.0-45.0); HEMOGLOBIN 14.8 g/dl (12.0-16.0); LYMPHOCYTES % (AUTO) 33.1 % (21-51); MEAN CORPUSCULAR HEMOGLOBIN 29.7 PG (27.0-31.0); MEAN CORPUSCULAR HGB CONC 33.6 g/dL (33.0-36.5); MEAN CORPUSCULAR VOLUME 88.4 FL (78-98); MEAN PLATELET VOLUME 8.5 FL (7.4-10.4); MONOCYTES # (AUTO) 0.9 X10'3 (0-0.9); MONOCYTES % (AUTO) 10.1 % (2-12); NEUTROPHILS # (AUTO) 4.8 X10'3 (1.8-7.7); PLATELET COUNT 189 X10'3 (140-440); RED BLOOD COUNT 4.99 X10'6 (4.20-5.60); RED CELL DISTRIBUTION WIDTH 13.4 % (11.5-14.5)
[2024-06-05 15:28] LABS: URINE HCG NEGATIVE (NEG)
[2024-06-05 15:36] LABS: ALANINE AMINOTRANSFERASE 80 U/L (12-78); ALBUMIN/GLOBULIN RATIO 0.7 (1.1-1.5); ALKALINE PHOSPHATASE 80 IU/L (46-116); ANION GAP 7 (8-16); ASPARTATE AMINO TRANSFERASE 63 U/L (10-37); BILIRUBIN,TOTAL 0.4 MG/DL (0.1-1.0); BLOOD UREA NITROGEN 13 MG/DL (7-18); BUN/CREATININE RATIO 12.4 (10.0-20.0); CALCIUM 8.5 MG/DL (8.5-10.1); CHLORIDE 103 MMOL/L (99-107); CREATININE 1.05 MG/DL (0.40-0.90); GLUCOSE 102 MG/DL (70-104); LIPASE 32 U/L (16-77); POTASSIUM 4.1 MMOL/L (3.5-5.1); SODIUM 140 MMOL/L (135-145); TOTAL PROTEIN 7.6 G/DL (6.4-8.2); eCRCL 58 ML/MIN; eGFR 56 ML/MIN
[2024-06-05 15:45] LABS: BILIRUBIN,URINE NEGATIVE (Neg); CLARITY,URINE SLIGHTLY CLOUDY (Clear); COLOR,URINE YELLOW (Yellow); GLUCOSE, URINE NEGATIVE (Neg); KETONES,URINE TRACE mg/dl (Neg); LEUKOCYTE ESTERASE ,URINE NEGATIVE (Neg); NITRITES, URINE NEGATIVE (Neg); OCCULT BLOOD,URINE NEGATIVE (Neg); PH,URINE 7.5 (4.8-8.0); PROTEIN,URINE NEGATIVE (Neg); UROBILINOGEN,URINE 0.2 E.U/dL (0.2-1.0)
[2024-06-05 15:51] LABS: UA COLLECTION TYPE CLN CATCH MIDSTREAM
[2024-06-05 15:53] LABS: BACTERIA,URINE NONE SEEN /HPF (Neg); RBC,URINE 0-2 /HPF (0-2); SQUAMOUS EPITHELIAL CELL,UR FEW /LPF (FEW); WBC,URINE 0-4 /HPF (0-4)
[2024-06-05 15:54] LABS: MUCUS STRANDS FEW /LPF (Neg); TRANSITIONAL EPI CELLS,URINE FEW /HPF
[2024-06-05] MEDS ORDERED: DICY20TA17 PO (17:38)
[2024-06-05] MEDS ORDERED: ONDA-243 PO (17:38)
[2024-06-05] MEDS: dicyclomine 10 MG capsule PO ONE (17:49)
[2024-06-05] MEDS: ondansetron 4mg rapidly disintigrating tab PO ONE (17:49)
[2024-06-05] MEDS: ketorolac trometh 15mg/ml vial 15 MG/ML ML IM ONE (17:49)
[2024-06-05 18:03] VITALS: BP 134/90; PULSE 87; RESP 16; O2SAT 97
== END 2024-06-05 18:00 | disposition home or self-care (01) ==
LOC: ER 14:25
DX: R10.11 Right upper quadrant pain (principal); R10.31 Right lower quadrant pain; R10.13 Epigastric pain; J45.909 Unspecified asthma, uncomplicated; I10 Essential (primary) hypertension; F31.9 Bipolar disorder, unspecified; F20.9 Schizophrenia, unspecified; G43.909 Migraine, unspecified, not intractable, without status migrainosus; Z88.0 Allergy status to penicillin; Z88.2 Allergy status to sulfonamides; Z88.8 Allergy status to other drugs, medicaments and biological substances; Z79.899 Other long term (current) drug therapy; Z90.49 Acquired absence of other specified parts of digestive tract; Z98.51 Tubal ligation status; Z87.440 Personal history of urinary (tract) infections
CPT/HCPCS: 36415; 74176; 76700; 80053; 81001; 81025; 83690; 85025; 96372; 99285; J1885

== ENCOUNTER 2024-09-20 10:59 | Emergency (ER) | payer MEDICAID ==
[~2024-09-20] VITALS: Ht 162.6 cm; Wt 156.5 kg
[~2024-09-20 10:59] MED LIST changes: +DICY20TA17 PO
[2024-09-20 14:38] VITALS: BP 148/86; PULSE 84; RESP 18; TEMP 98.5; O2SAT 98
== END 2024-09-20 14:40 | disposition home or self-care (01) ==
LOC: ER 11:00
DX: M25.461 Effusion, right knee (principal); J45.909 Unspecified asthma, uncomplicated; F20.9 Schizophrenia, unspecified; F31.9 Bipolar disorder, unspecified; I10 Essential (primary) hypertension; Z88.0 Allergy status to penicillin; Z88.2 Allergy status to sulfonamides; Z88.8 Allergy status to other drugs, medicaments and biological substances; Z90.49 Acquired absence of other specified parts of digestive tract; Z98.51 Tubal ligation status; W19.XXXA Unspecified fall, initial encounter; Y93.89 Activity, other specified; Y92.89 Other specified places as the place of occurrence of the external cause; Y99.8 Other external cause status
CPT/HCPCS: 73564; 73700; 99284

== ENCOUNTER 2024-11-16 18:12 | Emergency (ER) | payer MEDICAID ==
[~2024-11-16] VITALS: Ht 162.6 cm; Wt 120.7 kg
[2024-11-16 18:25] VITALS: BP 148/98; PULSE 77; RESP 17; TEMP 96.8; O2SAT 98
[2024-11-16] MEDS ORDERED: BACI1PAC7 TOP (19:18)
[2024-11-16] MEDS: ibuprofen tablet 400 MG TABLET PO ONE (19:23)
[2024-11-16] MEDS: acetaminophen 325mg tablet PO ONE (19:23)
[2024-11-16] MEDS: bacitracin 15gm ointment TP ONE (19:24)
[2024-11-16] MEDS: ondansetron 4mg rapidly disintigrating tab PO ONE (19:24)
== END 2024-11-16 19:31 | disposition home or self-care (01) ==
LOC: ER 18:13
DX: S60.511A Abrasion of right hand, initial encounter (principal); I10 Essential (primary) hypertension; F20.9 Schizophrenia, unspecified; J45.909 Unspecified asthma, uncomplicated; F31.9 Bipolar disorder, unspecified; G43.909 Migraine, unspecified, not intractable, without status migrainosus; Z90.49 Acquired absence of other specified parts of digestive tract; Z98.51 Tubal ligation status; Z88.0 Allergy status to penicillin; Z88.2 Allergy status to sulfonamides; Z88.8 Allergy status to other drugs, medicaments and biological substances; Z79.1 Long term (current) use of non-steroidal anti-inflammatories (NSAID); Z79.899 Other long term (current) drug therapy; W57.XXXA Bitten or stung by nonvenomous insect and other nonvenomous arthropods, initial encounter; Y93.89 Activity, other specified; Y92.89 Other specified places as the place of occurrence of the external cause; Y99.8 Other external cause status
CPT/HCPCS: 99284